=== PATIENT | male | born 1995 | race Caucasian/White ===

== ENCOUNTER 2016-12-31 15:03 | Emergency (ER) | payer SELFPAY ==
[~2016-12-31] VITALS: Ht 185.4 cm; Wt 79.1 kg
[2016-12-31 15:04] VITALS: BP 118/83
[2016-12-31] MEDS ORDERED: LIDOCAINE 1%-EPI 1:100K, 30ML ONE (15:19)
[2016-12-31] MEDS ORDERED: KETOROLAC 30 MG/1 ML ONE (15:30)
[2016-12-31] MEDS ORDERED: LIDOCAINE 1%, 20ML ONE (15:30)
[2016-12-31] MEDS ORDERED: DIPH,PERTUSS(ACELL),TET VAC/PF 0.5 ML IM-VACC ONE ×2 (15:30→15:31)
[2016-12-31] MEDS ORDERED: LIDOCAINE 1%-EPI 1:100K, 20ML SQ ONE (15:30)
[2016-12-31] MEDS ORDERED: KETOROLAC 30 MG/1 ML IM ONE (15:30)
[2016-12-31] MEDS ORDERED: LIDOCAINE 1%, 20ML SQ ONE (15:30)
[2016-12-31] MEDS ORDERED: BACITRACIN ZINC OINT 500U/GM, 0.9 GM ONE (16:28)
== END 2016-12-31 16:56 | disposition home or self-care (01) ==
LOC: ED 16:50
DX: S01.511A Laceration without foreign body of lip, initial encounter (principal); K21.9 Gastro-esophageal reflux disease without esophagitis; F12.10 Cannabis abuse, uncomplicated; X58.XXXA Exposure to other specified factors, initial encounter; Y93.89 Activity, other specified; Y92.89 Other specified places as the place of occurrence of the external cause; Y99.8 Other external cause status
CPT/HCPCS: 13151; 90471; 90715; 96372; 99285; J1885

== ENCOUNTER 2017-01-06 11:48 | Emergency (ER) | payer SELFPAY ==
[~2017-01-06] VITALS: Ht 185.4 cm; Wt 79.5 kg
[2017-01-06 13:47] VITALS: BP 117/71
== END 2017-01-06 13:49 | disposition home or self-care (01) ==
LOC: ED 12:43
DX: S01.511D Laceration without foreign body of lip, subsequent encounter (principal); Z48.02 Encounter for removal of sutures; K21.9 Gastro-esophageal reflux disease without esophagitis
CPT/HCPCS: 99281